=== PATIENT | male | born 1985 ===

== ENCOUNTER 2022-09-14 09:31 | Emergency (ER) | payer OTHER, SELFPAY ==
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
[2022-09-14 09:34] VITALS: BP 113/73; PULSE 78; RESP 16; TEMP 38; O2SAT 99
[2022-09-14 09:36] VITALS: BMI 24.1
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
[2022-09-14] MEDS: Fluorescein Sodium STRIP 1 STRIP EYE-BOTH (10:33)
[2022-09-14] MEDS: Acetaminophen 325 MG TABLET 975 MG PO (10:33)
[2022-09-14] MEDS: Tetracaine HCl/PF 0.5% Oph Sol 4 ML DROPS 3 DROP EYE-BOTH (10:33)
--- NOTE | 2022-09-14 10:34 | PC.NURSE ---
patient a&ox3, c/o 03/06 lt eye pain, nasal swab obtained, pt medicated per order, provider to use drops, pt awaiting ct scan, call breaux within reach, will continue to monitor
[2022-09-14 11:03] LABS: Influenza A PCR NEGATIVE (Negative); Influenza B PCR NEGATIVE (Negative); Resp Syncy Virus RNA Qual PCR NEGATIVE (Negative); SARS COV2 PCR INHOUSE POSITIVE (Negative)
--- NOTE | 2022-09-14 11:09 | PC.NURSE ---
provider performed eye exam
[2022-09-14] MEDS: Ketorolac Tromethamine 0.5% Op 5 ML DROPS 1 DROP EYE-BOTH (11:33)
[2022-09-14] MEDS: Erythromycin Base 0.5% Oph Oin 1 GM TUBE 1 CM EYE-BOTH (11:33)
[2022-09-14 11:40] VITALS: BP 106/70; PULSE 69; RESP 16; TEMP 37.1; O2SAT 97
== END 2022-09-14 11:47 | disposition home or self-care (01) ==
PROVIDERS: Physician Assistant Medical; Emergency Provider Emergency Medicine
DX: U07.1 COVID-19 (principal); M54.2 Cervicalgia; R51.9 Headache, unspecified; R50.9 Fever, unspecified
CPT/HCPCS: 0241U; 70450; 72125; 99284

== ENCOUNTER 2023-02-19 15:15 | Emergency (ER) | payer OTHER, SELFPAY ==
--- NOTE | ~2023-02-19 | XR_ITS ---
EXAMINATION: XR CERVICAL SPINE CLINICAL INFORMATION: Pain COMPARISON: CT cervical spine from 09/14/2022 TECHNIQUE: 3 views of the cervical spine were obtained. FINDINGS: No acute visible fracture or dislocation. Visualized dens is intact. Lateral masses are symmetric. Vertebral body heights and disc spaces are maintained. Prevertebral soft tissues are unremarkable. Posterior elements are intact. Paraspinal soft tissues are unremarkable. Visualized portions of the upper chest are unremarkable. XR/XR cervical spine 3V IMPRESSION: No acute visible fracture or dislocation.
[2023-02-19 15:32] VITALS: BP 104/65; PULSE 71; RESP 18; TEMP 37; O2SAT 99; BMI 25.1
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
[2023-02-19] MEDS: Ketorolac Tromethamine 30 MG/ML VIAL IM (15:41)
== END 2023-02-19 18:44 | disposition home or self-care (01) ==
PROVIDERS: Emergency Provider Emergency Medicine
DX: M54.2 Cervicalgia (principal); S16.1XXD Strain of muscle, fascia and tendon at neck level, subsequent encounter; V49.9XXD Car occupant (driver) (passenger) injured in unspecified traffic accident, subsequent encounter
CPT/HCPCS: 72040; 96372; 99283; 99284; J1885

== ENCOUNTER 2024-05-04 17:28 | Emergency (ER) | payer OTHER, SELFPAY ==
[2024-05-04 17:39] VITALS: BP 106/72; PULSE 80; RESP 20; TEMP 36.8; O2SAT 98; BMI 27.0
--- NOTE | 2024-05-04 17:39 | ED.GENADULT ---
HPI - General Adult General Chief complaint: Upper Respiratory Symptoms Stated complaint: sore throat Time Seen by Provider: 05/04/24 20:43 Source: patient Mode of arrival: ambulatory Limitations: no limitations History of Present Illness ED Provider: Lynne Herndon NP HPI narrative: Patient is a 39-year-old male who presents emergency department for evaluation of 3 days with intermittent sore throat, painful swallowing, intermittent right ear pain. Denies any active drainage from the ear, changes in hearing. Denies any known sick contacts. He has not trialed any OTC cold medications, he has only taken ibuprofen 200 mg once 2 days ago without any improvement. Denies fevers, chills, headache, dizziness, neck pain, neck stiffness, chest pain, shortness of breath, difficulty breathing, cough, sore throat, nausea, vomiting, abdominal pain, numbness or tingling of the extremities, genitourinary symptoms. Related Data Previous Rx's ?Medication ?Instructions ?Recorded acetaminophen 500 mg tablet 1,000 mg (2 x 500 mg) PO QID PRN 09/14/22 (Tylenol Extra Strength) fever or pain #14 tabs erythromycin 5 mg/gram (0.5 %) eye 0.5 inch ophthalmic (eye) QID 09/14/22 ointment corneal abrasion 7 days #3.5 grams ibuprofen 800 mg tablet 800 mg PO Q8H PRN pain #14 tabs 09/14/22 cyclobenzaprine 5 mg tablet 5 mg PO TID PRN muscle spasm #12 02/19/23 tabs lidocaine 5 % topical patch 1 patch topical DAILY #15 ea 02/19/23 benzocaine 15 mg-menthol 2.6 mg 1 ifrah mucous membrane Q2-4H PRN 05/04/24 lozenges (Cepacol Sore Throat sore throat #16 ea (benzocaine-menthol)) phenol 1.5 %-glycerin 33 % mucosal 1 spray mucous membrane Q4-6H PRN 05/04/24 spray (Chloraseptic Max Sore sore throat #118 mL Throat) Allergies Allergy/AdvReac Type Severity Reaction Status Date / Time No Known Allergies Allergy Verified 05/04/24 17:41 Review of Systems Review of Systems: Yes all other systems are reviewed and are negative PMFSH Past Medical History Attestation statement: The following information was validated with the patient. Source: old records reviewed Medical History No pertinent past medical history Social History Social History Alcohol intake: never Advance Directives: No Advance Directives Information Provided: No Do you have a plan to hurt others: No Plan Physical Exam ED Vital Signs: Vital Signs - 24 hr 05/04/24 17:39 05/04/24 20:18 Temperature 98.3 F 97.4 F Pulse Rate 80 74 Respiratory Rate 20 16 Blood Pressure 106/72 116/78 Pulse Oximetry 98 98 Oxygen Delivery Method Room Air Room Air BMI result Body Mass Index 27.0 Appearance: Alert.?Oriented to person, place and time. No acute distress.?Normal affect. Eyes: Pupils equal, round and reactive to light.? ENT: Pharynx is erythematous without tonsillar hypertrophy. No exudates. Uvula is midline. No trismus. No drooling. TM normal bilaterally. No mastoid tenderness. No otitis externa. Neck: Normal inspection.? Neck supple.??No cervical adenopathy CVS: Heart sounds normal. Normal heart rate and rhythm.? Pulses normal.?? Respiratory: No respiratory distress.? Lung sounds clear to auscultation bilaterally?? Abdomen: Soft and non-tender. Normoactive bowel sounds. No hepatosplenomegaly? Skin: Skin warm and dry.? Normal skin color.? Extremities: No lower extremity edema.? Neuro: Moves all extremities spontaneously. Sensation intact bilaterally. No focal neuro deficits. Ambulates with normal steady gait. Course Course Course Narrative: This is an RME done by SANTHOSH Ordonez: Additional HPI, ROS, PE not included below will be deferred to primary provider. 39 year old male presents w/ sore throat x 3 days worsening. Reports he feels like the nerves in his neck are hurting. No sick contacts. NO fevers, cough, nausea, vomiting, diarrhea, headache, cp, sob Medical Decision Making Medical Decision Making MDM Narrative: Patient is a 39-year-old male presents emergency department for evaluation of sore throat and intermittent right ear pain as per HPI. COVID-19/influenza/RSV testing is negative. Strep a testing is negative, appears to have acute pharyngitis I suspect this is likely viral in nature, no evidence of [employer]PA/[employer]. Tolerating oral intake without difficulty. No respiratory distress. TMs are normal bilaterally, no evidence of effusion or acute otitis media. Abdominal examination is benign. Well-appearing, nontoxic, afebrile, no tachycardia or tachypnea/hypoxia. Speaking clear full sentences, ambulatory with steady gait. Discussed conservative treatment including rest, hydration, Tylenol/ibuprofen as needed for fever and body aches, saline nasal spray, humidifier, zwhc-vaa-cvwxnja cold medication. Advised to follow-up with primary care provider as needed, discussed reasons to return back to the emergency department. All questions were answered. Patient discharged home in stable condition. Differential Diagnosis Differential Diagnoses: The differential diagnosis associated with the presentation includes ( See narrative above) Admission/Observation Consideration of admission/observation: Escalation of care including admission/observation considered ( see narrative above) Lab Data MDM Lab Attestation statement: I reviewed the patient's lab results. ( see narrative above) Labs: Lab Results 05/04/24 Range/Units 17:45 Influenza Type A (PCR) NEGATIVE (Negative) Influenza Type B (PCR) NEGATIVE (Negative) RSV RNA Qual (PCR) NEGATIVE (Negative) SARS-CoV-2 RNA (RT-PCR) NEGATIVE (Negative) S. pyogenes GrpA MANOJ Negative (Negative) External Record Review External record reviewed: Outpatient record Prescription Management I considered prescription management with: Pain Medication ( acetaminophen/ibuprofen) and Antibiotic (Likely viral etiology, antibiotics deferred) Discharge Plan Discharge Clinical Impression: Pharyngitis Patient Disposition: Home, Self-Care Instructions: Pharyngitis (ED) Additional Instructions: Be sure to rest, stay well hydrated drinking plenty of fluids, eat small frequent meals. Tylenol/ibuprofen can be used as needed for fever/pain. Zhmc-kqq-pqkuwyh cold medications may be helpful as well for symptoms. Saline nasal spray, humidifier may be helpful for nasal congestion. You may return to the emergency department with any new or worsening symptoms or concerns. Follow-up with your primary care provider as needed. Should remain out of school/ work until symptoms have resolved and have been without a fever for 24 hours without the use of Tylenol or ibuprofen. Prescriptions: New Chloraseptic Max Sore Throat 1.5-33 % spray,non-aerosol 1 spray mucous membrane Q4-6H PRN (Reason: sore throat) Qty: 118 0RF Rx Instructions: leave on area for 15 seconds then spit out Cepacol Sore Throat (pretty-men) 15-2.6 mg lozenge 1 ifrah mucous membrane Q2-4H PRN (Reason: sore throat) Qty: 16 0RF No Action ibuprofen 800 mg tablet 800 mg PO Q8H PRN (Reason: pain) Qty: 14 0RF acetaminophen [Tylenol Extra Strength] 500 mg tablet 1,000 mg PO QID PRN (Reason: fever or pain) Qty: 14 0RF erythromycin 5 mg/gram (0.5 %) ointment 0.5 inch ophthalmic (eye) QID 7 Days Qty: 3.5 0RF cyclobenzaprine 5 mg tablet 5 mg PO TID PRN (Reason: muscle spasm) Qty: 12 0RF lidocaine 5 % adhesive patch,medicated 1 patch topical DAILY Qty: 15 0RF Rx Instructions: leave on most painful area for up to 12 hrs Referrals: Physician,None [Primary Care Provider] - Print Language: Nicaraguan
[2024-05-04 18:04] LABS: IDNOW Serial# 08D9AD1C; Strep A Nucleic Acid Negative (Negative)
[2024-05-04 18:28] LABS: Influenza A PCR NEGATIVE (Negative); Influenza B PCR NEGATIVE (Negative); Resp Syncy Virus RNA Qual PCR NEGATIVE (Negative); SARS COV2 PCR INHOUSE NEGATIVE (Negative)
[2024-05-04 20:18] VITALS: BP 116/78; PULSE 74; RESP 16; TEMP 36.3; O2SAT 98
[2024-05-04 21:02] VITALS: BP 110/71; PULSE 73; RESP 16; TEMP 36.7; O2SAT 98
--- NOTE | 2024-05-04 21:18 | PC.NURSE ---
Took over care Ld Padron, Reviewed discharge instruction with pt, pt verbalized understanding no sign of distress.
[2024-05-04 21:20] VITALS: BP 110/71; PULSE 73; RESP 16; TEMP 36.7; O2SAT 98
== END 2024-05-04 21:21 | disposition home or self-care (01) ==
PROVIDERS: Physician Assistant; Emergency Provider Emergency Medicine
DX: J02.9 Acute pharyngitis, unspecified (principal); H92.01 Otalgia, right ear; Z03.818 Encounter for observation for suspected exposure to other biological agents ruled out; Z79.899 Other long term (current) drug therapy
CPT/HCPCS: 0241U; 87651; 99283; 99284

== ENCOUNTER 2024-11-29 19:06 | Emergency (ER) | payer OTHER, SELFPAY ==
--- NOTE | ~2024-11-29 | XR_ITS ---
CLINICAL HISTORY: pain --- Additional Notes or Special Instructions: constipation 1 view abdomen Comparison: None Findings: Bowel-gas pattern is within normal limits. There is a oebwe-jj-guhynoeo amount of stool in the colon. There is no evidence of bowel obstruction. There are several calcifications in the pelvis consistent with phleboliths. Impression: Bowel-gas pattern is within normal limits. This document has been electronically signed by: Adam Ortega MD on 11/29/2024 23:43:31
[2024-11-29 19:19] VITALS: BP 125/79; PULSE 71; RESP 16; TEMP 36.6; O2SAT 98; BMI 27.6
--- NOTE | 2024-11-29 19:20 | ED.ABDPAIN ---
HPI - Abdominal Pain General Chief Complaint: Abdominal Pain Stated Complaint: abd pain Time Seen by Provider: 11/29/24 22:41 Source: patient Limitations: no limitations History of Present Illness ED Provider: Shayna Nicholas PA-C HPI narrative: 39-year-old male presents with the abdominal bloating x5 days. Associated indigestion. Denies nausea, vomiting, diarrhea, fever, constipation. Denies inability to pass flatus. Related Data Previous Rx's ?Medication ?Instructions ?Recorded acetaminophen 500 mg tablet 1,000 mg (2 x 500 mg) PO QID PRN 09/14/22 (Tylenol Extra Strength) fever or pain #14 tabs erythromycin 5 mg/gram (0.5 %) eye 0.5 inch ophthalmic (eye) QID 09/14/22 ointment corneal abrasion 7 days #3.5 grams ibuprofen 800 mg tablet 800 mg PO Q8H PRN pain #14 tabs 09/14/22 cyclobenzaprine 5 mg tablet 5 mg PO TID PRN muscle spasm #12 02/19/23 tabs lidocaine 5 % topical patch 1 patch topical DAILY #15 ea 02/19/23 benzocaine 15 mg-menthol 2.6 mg 1 ifrah mucous membrane Q2-4H PRN 05/04/24 lozenges (Cepacol Sore Throat sore throat #16 ea (benzocaine-menthol)) phenol 1.5 %-glycerin 33 % mucosal 1 spray mucous membrane Q4-6H PRN 05/04/24 spray (Chloraseptic Max Sore sore throat #118 mL Throat) Allergies Allergy/AdvReac Type Severity Reaction Status Date / Time No Known Allergies Allergy Verified 11/29/24 19:21 Review of Systems Review of Systems Yes all other systems are reviewed and are negative Constitutional: Denies fatigue and Denies fever(s) Cardiovascular: Denies chest pain and Denies dyspnea Respiratory: Denies cough and Denies dyspnea Gastrointestinal: Reports bloating, Denies constipation, Reports dyspepsia, Denies diarrhea, Denies nausea and Denies vomiting Endocrine: Denies fatigue PMFSH Past Medical History Attestation statement: The following information was validated with the patient. Medical History No pertinent past medical history Social History Social History Alcohol intake: never Advance Directives: No Advance Directives Information Provided: Yes Physical Exam ED Vital Signs: Vital Signs - 24 hr 11/29/24 19:19 11/29/24 22:00 Temperature 97.9 F 98.6 F Pulse Rate 71 63 Respiratory Rate 16 13 Blood Pressure 125/79 Pulse Oximetry 98 99 Oxygen Delivery Method Room Air Room Air BMI result Body Mass Index 27.6 Const Other: Alert, well-appearing Orientation/consciousness: patient oriented x3 Resp Effort & Inspection: normal respiratory effort Cardio Other: normal peripheral perfusion GI Other: abdomen is soft, objectively distended, nontender no guarding Skin Other: warm dry no rash Neuro General: patient oriented x3, gait normal, no focal motor deficits and CN's II-XI intact bilaterally Psych Other: cooperative Course Course Course Narrative: This is a Rapid Medical Exam performed in triage by Lore Pritchett PA-C. Full HPI, ROS and PE to be performed by primary ED provider. 39 yo M w/no sig PMHX presenting to the ED c/o abdominal bloating x1 week. Reports pressure. Denies N/V, constipation, urinary sx PE: +abdominal distention, abdomen soft nontender, no rebound or guarding Plan: labs, UA Medical Decision Making Medical Decision Making MDM Narrative: 39-year-old male presents with the abdominal bloating x5 days. Associated indigestion. Denies nausea, vomiting, diarrhea, fever, constipation. Denies inability to pass flatus. no chronic issues History: Per patient I have considered the following differential diagnoses: Constipation, obstipation, fecal impaction, bowel obstruction , Perforated peptic ulcer Plan: patient is objectively distended without any active GI symptoms, he states he is not constipated, he likely is. Screening labs were already obtained and are unremarkable. Adding on a KUB. He has no obstructive symptoms at this time. Given concurrent indigestion, thought about potential perforated ulcer, however there are no peritoneal signs on exam, he has no active vomiting in particular coffee-ground emesis. I have independently reviewed the following tests: Labs: No leukocytosis, not anemic, no electrolyte abnormality noted, urine not infected KUB:Findings: Bowel-gas pattern is within normal limits. There is a zkwsa-cp-iifgfdee amount of stool in the colon. There is no evidence of bowel obstruction. There are several calcifications in the pelvis consistent with phleboliths. Impression: Bowel-gas pattern is within normal limits. Lab Data 11/29/24 19:51 11/29/24 19:51 Labs: Lab Results 11/29/24 Range/Units 19:51 WBC 6.1 (4.8-10.8) X10*3/uL RBC 5.11 (4.60-5.80) X10*6/uL Hgb 14.6 (14.0-18.0) g/dl Hct 43.8 (42.0-52.0) % MCV 85.7 (80.0-98.0) fL MCH 28.6 (27.0-33.0) pg MCHC 33.3 (31.0-36.0) g/dl RDW 13.2 (11.0-16.0) % Plt Count 221 (160-400) X10*3/uL MPV 9.1 L (9.4-12.4) fL Immature Gran % (Auto) 0.3 (0.0-0.4) % Neut % (Auto) 37.6 L (45-73) % Lymph % (Auto) 52.1 H (20-40) % [place] % (Auto) 7.6 (2-11) % Eos % (Auto) 1.6 (0-4) % Baso % (Auto) 0.8 (0-2) % Lymph # (Auto) 3.2 (1.2-4.9) X10*3/uL [place] # (Auto) 0.5 (0.1-1.2) X10*3/uL Eos # (Auto) 0.1 (0.0-0.4) X10*3/uL Baso # (Auto) 0.1 (0.0-0.2) X10*3/uL Abs Immat Gran (auto) 0.02 (0.00-0.03) X10*3/uL Absolute Neuts (auto) 2.3 (2.0-8.3) x10*3/uL Absolute Nucleated RBC 0.000 (0.0-0.012) X10*3/uL Nucleated RBC % (auto) 0.0 (0.0-0.2) /100WBC Sodium 141 (135-145) mmol/L Potassium 3.9 (3.3-5.1) mmol/L Chloride 110 H (96-108) mmol/L Carbon Dioxide 25 (22-29) mmol/L Anion Gap 10 L (12-20) BUN 10 (9-16) mg/dL Creatinine 1.28 (0.5-1.4) mg/dL Estim Creat Clear Calc 73.4 Estimated GFR > 60 Random Glucose 93 (60-115) mg/dL Calcium 9.5 (8.4-10.2) mg/dL Magnesium 2.0 (1.6-2.6) mg/dL Total Bilirubin 0.3 (0.0-1.0) mg/dL Direct Bilirubin 0.1 (0.0-0.5) mg/dL AST 21 (5-37) U/L ALT 26 (0-40) U/L Alkaline Phosphatase 75 (39-117) U/L Total Protein 7.4 (6.5-8.0) g/dL Albumin 4.3 (3.5-5.0) g/dL Lipase 41 (8-78) U/L Urine Color Yellow Urine Appearance Clear Urine pH 7.0 (5.0-9.0) Ur Specific [place] 1.025 (1.005-1.025) Urine Protein Negative (Neg-Trace) mg/dL Urine Glucose (UA) Negative (Negative) mg/dL Urine Ketones Trace (Negative) mg/dL Urine Blood Negative (Negative) Urine Nitrite Negative (Negative) Ur Leukocyte Esterase Negative (Negative) Medications Administered Discontinued Medications Generic Name Dose Route Start Last Admin Trade Name Phongq PRN Reason Stop Dose Admin Al Hydroxide/Mg Hydroxide 30 ml 11/29/24 23:03 11/29/24 23:28 Magnesium Hydrox/Alum Hydrox 30 Ml Oral.Susp PO 11/29/24 23:04 30 ml ONCE ONE Administration Discharge Plan Discharge Clinical Impression: Constipation Patient Disposition: Home, Self-Care Instructions: Constipation (ED) Additional Instructions: all of your screening labs were normal, the x-ray revealed that you are constipated. See home care instructions. Use hirq-wpb-kszcgrr Colace, this is a stool softener, twice a day. Use perd-vsr-mpartnu MiraLax, you can either drink it every hour until you begin having multiple large volume bowel movements, or you could take it more gradually, use it 3 to 4 times a day, until you begin evacuating her bowels. Follow up with your PCP as needed. Prescriptions: No Action ibuprofen 800 mg tablet 800 mg PO Q8H PRN (Reason: pain) Qty: 14 0RF acetaminophen [Tylenol Extra Strength] 500 mg tablet 1,000 mg PO QID PRN (Reason: fever or pain) Qty: 14 0RF erythromycin 5 mg/gram (0.5 %) ointment 0.5 inch ophthalmic (eye) QID 7 Days Qty: 3.5 0RF cyclobenzaprine 5 mg tablet 5 mg PO TID PRN (Reason: muscle spasm) Qty: 12 0RF lidocaine 5 % adhesive patch,medicated 1 patch topical DAILY Qty: 15 0RF Rx Instructions: leave on most painful area for up to 12 hrs Chloraseptic Max Sore Throat 1.5-33 % spray,non-aerosol 1 spray mucous membrane Q4-6H PRN (Reason: sore throat) Qty: 118 0RF Rx Instructions: leave on area for 15 seconds then spit out Cepacol Sore Throat (pretty-men) 15-2.6 mg lozenge 1 ifrah mucous membrane Q2-4H PRN (Reason: sore throat) Qty: 16 0RF Print Language: Moldovan
[2024-11-29 19:56] LABS: MANUAL DIFF FLAG NO
[2024-11-29 19:57] LABS: Basophils Absolute Auto 0.1 X10*3/uL (0.0-0.2); Basophils Percent Auto 0.8 % (0-2); Eosinophils Absolute Auto 0.1 X10*3/uL (0.0-0.4); Eosinophils Percent Auto 1.6 % (0-4); Hematocrit 43.8 % (42.0-52.0); Hemoglobin 14.6 g/dl (14.0-18.0); Imm Gran Abs Auto 0.02 X10*3/uL (0.00-0.03); Imm Gran Pct Auto 0.3 % (0.0-0.4); Lymphocytes Absolute Auto 3.2 X10*3/uL (1.2-4.9); Lymphocytes Percent Auto 52.1 % (20-40); Mean Corpuscular HGB Conc 33.3 g/dl (31.0-36.0); Mean Corpuscular Hemoglobin 28.6 pg (27.0-33.0); Mean Corpuscular Volume 85.7 fL (80.0-98.0); Mean Platelet Volume 9.1 fL (9.4-12.4); Monocytes Absolute Auto 0.5 X10*3/uL (0.1-1.2); Monocytes Percent Auto 7.6 % (2-11); Neutrophils Absolute Auto 2.3 x10*3/uL (2.0-8.3); Neutrophils Percent Auto 37.6 % (45-73); Platelet Count 221 X10*3/uL (160-400); Red Blood Count 5.11 X10*6/uL (4.60-5.80); Red Cell Distribution Width 13.2 % (11.0-16.0); White Blood Count 6.1 X10*3/uL (4.8-10.8)
[2024-11-29 19:58] LABS: Appearance Urine Clear; Color Urine Yellow; Glucose Urine UA Negative (Negative); Leukocyte Esterase Urine Negative (Negative); Nitrite Urine Negative (Negative); Specific Gravity - Urine 1.025 (1.005-1.025); Urine Blood Negative (Negative); Urine Ketones Trace mg/dL (Negative); Urine Protein Negative (Neg-Trace)
[2024-11-29 20:11] LABS: Alanine Aminotransferase 26 U/L (0-40); Albumin Level 4.3 g/dL (3.5-5.0); Alkaline Phosphatase 75 U/L (39-117); Anion Gap 10 (12-20); Aspartate Amino Transferase 21 U/L (5-37); Bilirubin Direct 0.1 mg/dL (0.0-0.5); Bilirubin Total 0.3 mg/dL (0.0-1.0); Blood Urea Nitrogen 10 mg/dL (9-16); Calcium 9.5 mg/dL (8.4-10.2); Carbon Dioxide 25 mmol/L (22-29); Chloride 110 mmol/L (96-108); Creatinine Clr Calc Pharmacy 73.4; Estimated Glomerular Filt Rate > 60; Glucose Random 93 mg/dL (60-115); Lipase 41 U/L (8-78); Potassium 3.9 mmol/L (3.3-5.1); Sodium 141 mmol/L (135-145); Total Protein 7.4 g/dL (6.5-8.0)
[2024-11-29 22:00] VITALS: PULSE 63; RESP 13; TEMP 37; O2SAT 99
[2024-11-29] MEDS: Magnesium Hydrox/Alum Hydrox 30 ML ORAL.SUSP PO (23:28)
--- NOTE | 2024-11-30 00:48 | PC.NURSE ---
reviewed discharge instructions with pt, pt verbalized understanding, no sign of distress, pt has a steady gait.
--- NOTE | 2024-11-30 00:48 | PC.NURSE ---
notified ANTHONY ware
[2024-11-30 00:49] VITALS: BP 00/00; PULSE 63; RESP 13; TEMP 37; O2SAT 99
== END 2024-11-30 00:50 | disposition home or self-care (01) ==
PROVIDERS: Physician Assistant; Emergency Provider Emergency Medicine
DX: K59.00 Constipation, unspecified (principal); K30 Functional dyspepsia; Z79.899 Other long term (current) drug therapy
CPT/HCPCS: 36415; 74018; 80048; 80076; 81003; 83690; 83735; 85025; 99283; 99284

== ENCOUNTER → 2024-11-29 22:56 | Outpatient (BNV) | payer OTHER, SELFPAY | PROVIDERS: Visit Provider Radiology Diagnostic Radiology | DX: R10.9 Unspecified abdominal pain (principal) | CPT/HCPCS: 74018 ==

== ENCOUNTER 2025-01-08 13:20 | Emergency (ER) | payer OTHER, SELFPAY ==
--- NOTE | ~2025-01-08 | XR_ITS ---
EXAMINATION: XR ABDOMEN 1 VIEW (KUB) HISTORY: constipation COMPARISON: Comparison is made with the prior examination dated 11/29/2024. FINDINGS: Three supine views of the abdomen are submitted. The bowel gas pattern is unremarkable, without evidence of mechanical obstruction. There is a large amount of stool throughout the colon. There are phleboliths in the pelvis. There are no abnormal soft tissue masses. The bones are intact. XR/XR KUB IMPRESSION: Large amount of stool throughout the colon. Electronically signed by: Yasir Hopkins MD 01/08/2025 02:04 PM EDT
[2025-01-08 13:28] VITALS: BP 113/70; PULSE 78; RESP 14; TEMP 36; O2SAT 97; BMI 24.1
--- NOTE | 2025-01-08 13:28 | ED_ITS ---
HPI - General Adult General Chief complaint: General Medical Stated complaint: constipation Time Seen by Provider: 01/08/25 14:08 Source: patient Mode of arrival: ambulatory Limitations: no limitations History of Present Illness ED Provider: SUSAN MARES PA-C HPI narrative: 39 year old male presents to the ED today for evaluation of abdominal bloating and constipation. Reports his last BM was yesterday and was normal. History of similar symptoms 1 month ago. He was diagnosed with constipation. He was treated with Maalox in the ED which helped his symptoms. He has been trialing xayp-gdx-zlsxbzn Colace and MiraLax without much effect. He is passing flatus. Denies nausea or vomiting. Denies history of abdominal surgeries. Related Data Previous Rx's ?Medication ?Instructions ?Recorded acetaminophen 500 mg tablet 1,000 mg (2 x 500 mg) PO Q ID PRN 09/14/22 (Tylenol Extra Strength) fever or pain #14 tabs erythromycin 5 mg/gram (0.5 %) eye 0.5 inch ophthalmic (eye) QID 09/14/22 ointment corneal abrasion 7 days #3.5 grams ibuprofen 800 mg tablet 800 mg PO Q8H PRN pain #14 t abs 09/14/22 cyclobenzaprine 5 mg tablet 5 mg PO TID PRN muscle spa sm #12 02/19/23 tabs lidocaine 5 % topical patch 1 patch topical DAILY #15 ea 02/19/23 benzocaine 15 mg-menthol 2.6 mg 1 ifrah mucous membrane Q2-4H PRN 05/04/24 lozenges (Cepacol Sore Throat sore throat #16 ea (benzocaine-menthol)) phenol 1.5 %-glycerin 33 % mucosal 1 spray mucous memb malika Q4-6H PRN 05/04/24 spray (Chloraseptic Max Sore sore throat #118 mL Throat) peg 3350-electrolytes 236 240 ml PO DAILY 3 days #4,00 0 mL 01/08/25 gram-22.74 gram-6.74 gram-5.86 gram solution (Golytely) Allergies Allergy/AdvReac Type Severity Reaction Status Date / Time No Known Allergies Allergy Verified 01/08/25 13:30 Review of Systems Review of Systems: Yes all other systems are reviewed and are negative PMFSH Past Medical History Attestation statement: The following information was validated with the patient. Source: old records reviewed and nursing notes reviewed Medical History No pertinent past medical history Social History Social History Alcohol intake: never Advance Directives: No Advance Directives Information Provided: Yes Do you have a plan to hurt others: No Plan Physical Exam ED Vital Signs: Vital Signs - 24 hr 01/08/25 13:28 01/08/25 14:11 Temperature 96.8 F 96.8 F Pulse Rate 78 78 Respiratory Rate 14 14 Blood Pressure 113/70 113/70 Pulse Oximetry 97 97 Oxygen Delivery Method Room Air BMI result Body Mass Index 24.1 vital signs stable General: Well appearing, in no acute distress. Skin: Warm, dry, intact. No rashes or lesions. Head: Normocephalic, atraumatic. EENT: Hearing is intact b/l. Conjunctiva clear. Sclera is anicteric. PERRLA. EOM intact. Moist mucous membranes.? Cardiac: Chest wall symmetric. RRR Lungs: Normal respiratory effort without accessory muscle use. CTA bilaterally. Abdomen: Soft, non-tender, non-distended. No rebound tenderness or guarding. Positive BS x4. Back: No midline spinous or paraspinal tenderness. No step off deformity. Ext: Upper and lower extremities atraumatic, without tenderness, deformity, swelling or erythema Neuro: AOx3. Normal speech. Ambulating with steady gait. Course Course Course Narrative: KUB showing constipation. no evidence of bowel obstruction. exam benign. Treated with Maalox in ED. Will send GoLYTELY to pharmacy. Patient has remained stable throughout ED visit today. Discussed worrisome signs and symptoms and when to return to the ED. All questions answered at this time. Patient is agreeable with disposition and stable for discharge. Medications Administered Discontinued Medications Generic Name Dose Route Start Last Admin Trade Name Freq PRN Reason Stop Dose Admin Al Hydroxide/Mg Hydroxide 30 ml 01/08/25 14:14 01/08/25 14:18 Magnesium Hydrox/Alum Hydrox 30 Ml Oral.Susp PO 01/08/25 14:15 30 ml ONCE ONE Administration Medical Decision Making Medical Decision Making MDM Narrative: 39 year old male presents to the ED today for evaluation of abdominal bloating and constipation. Vital signs stable. He is well-appearing and in no acute distress. Abdominal exam benign. Differential diagnosis includes constipation. Unlikely bowel obstruction, acute abdomen. Plan for KUB and re-evaluation. Differential Diagnosis Differential Diagnoses: The differential diagnosis associated with the presentation includes as above. Admission/Observation not indicated. Independent Interpretation I performed an independent interpretation of an: Plain X-Ray Interpretation: KUB showing constipation Radiology Impression Discussion of test interpretation with radiology: I have reviewed the radiologist's reading. Radiologist Impression: Date of Service: 01/08/25 Procedure(s): XR KUB Accession Number(s): [id number] cc: Physician,Unknown ; Susan Mares~ EXAMINATION: XR ABDOMEN 1 VIEW (KUB) HISTORY: constipation COMPARISON: Comparison is made with the prior examination dated 11/29/2024. FINDINGS: Three supine views of the abdomen are submitted. The bowel gas pattern is unremarkable, without evidence of mechanical obstruction. There is a large amount of stool throughout the colon. There are phleboliths in the pelvis. There are no abnormal soft tissue masses. The bones are intact. XR/XR KUB IMPRESSION: Large amount of stool throughout the colon. Electronically signed by: Yasir Hopkins MD 01/08/2025 02:04 PM EDT External Record Review External record reviewed: Inpatient record Prescription Management I considered prescription management with: Other (golytely) Social Determinants Patient?s care significantly limited by Social Determinants of Health including: Other Social Determinant of Health Critical Care Time Critical Care Time Critical Care Time: No Discharge Plan Discharge Clinical Impression: Constipation Patient Disposition: Home, Self-Care Instructions: Polyethylene Glycol 3350/Electrolytes (By mouth), Constipation (ED) Additional Instructions: Your imaging shows that you are constipated. See home care instructions. There is no evidence of obstruction. I am sending golytely to your pharmacy. Take this as prescribed to pass stool. Follow up with your doctor in 2 weeks. Return with new or worsening symptoms such as inability to pass a bowel movement or vomiting. In the case of an emergency call 911. Prescriptions: New peg 3350-electrolytes [Golytely] 236-22.74-6.74 -5.86 gram recon soln 240 ml PO DAILY 3 Days Qty: 4000 0RF Rx Instructions: until fecal effluent is clear No Action ibuprofen 800 mg tablet 800 mg PO Q8H PRN (Reason: pain) Qty: 14 0RF acetaminophen [Tylenol Extra Strength] 500 mg tablet 1,000 mg PO QID PRN (Reason: fever or pain) Qty: 14 0RF erythromycin 5 mg/gram (0.5 %) ointment 0.5 inch ophthalmic (eye) QID 7 Days Qty: 3.5 0RF cyclobenzaprine 5 mg tablet 5 mg PO TID PRN (Reason: muscle spasm) Qty: 12 0RF lidocaine 5 % adhesive patch,medicated 1 patch topical DAILY Qty: 15 0RF Rx Instructions: leave on most painful area for up to 12 hrs Chloraseptic Max Sore Throat 1.5-33 % spray,non-aerosol 1 spray mucous membrane Q4-6H PRN (Reason: sore throat) Qty: 118 0RF Rx Instructions: leave on area for 15 seconds then spit out Cepacol Sore Throat (pretty-men) 15-2.6 mg lozenge 1 ifrah mucous membrane Q2-4H PRN (Reason: sore throat) Qty: 16 0RF Referrals: [facility] [Provider Group, Gastroenterology] Physician,Unknown J [Primary Care Provider, Medical] Stand Alone Forms: Work/School Release Interventions: ED Discharge Assessment Last Done: 01/08/25 14:11 Discharge Date/Time: 01/08/25 14:33 Print Language: [place]se
[2025-01-08 14:11] VITALS: BP 113/70; PULSE 78; RESP 14; TEMP 36; O2SAT 97
[2025-01-08] MEDS: Magnesium Hydrox/Alum Hydrox 30 ML ORAL.SUSP PO (14:18)
== END 2025-01-08 14:33 | disposition home or self-care (01) ==
LOC: HO.ED 14:23
PROVIDERS: Emergency Provider Emergency Medicine
DX: K59.00 Constipation, unspecified (principal); R14.0 Abdominal distension (gaseous)
CPT/HCPCS: 74018; 99282; 99283

== ENCOUNTER → 2025-01-08 13:29 | Outpatient (BNV) | payer OTHER, SELFPAY | PROVIDERS: Emergency Provider Emergency Medicine; Visit Provider Radiology Diagnostic Radiology | DX: K59.00 Constipation, unspecified (principal) | CPT/HCPCS: 74018 ==

== ENCOUNTER 2025-05-08 18:22 | Emergency (ER) | payer OTHER, SELFPAY ==
--- NOTE | 2025-05-08 | ECG_ITS ---
Test Reason : cp Blood Pressure : */* mmHG Vent. Rate : 83 BPM Atrial Rate : 83 BPM P-R Int : 150 ms QRS Dur : 86 ms QT Int : 354 ms P-R-T Axes : 64 62 -20 degrees QTcB Int : 415 ms Normal sinus rhythm Minimal voltage criteria for LVH, may be normal variant ( Sokolow-Fisher ) T wave abnormality, consider inferior ischemia Abnormal ECG No previous ECGs available Referred By: Generic ED Physician Electronically Signed By: VANESSA SALDIVAR MD
--- NOTE | ~2025-05-08 | XR_ITS ---
CLINICAL HISTORY: pain 1 view chest x-ray. Comparison: None provided Findings: Heart size is normal. No consolidation or effusion. No acute fracture. The visualized upper abdomen is unremarkable. Impression: No acute cardiopulmonary process. This document has been electronically signed by: Bren Burns MD on 05/08/2025 21:03:32
--- NOTE | ~2025-05-08 | XR_ITS ---
CLINICAL HISTORY: pain 1 view abdomen Comparison: Radiograph on January 08, 2025. Findings: Nonobstructive bowel gas pattern. No pneumatosis. No abnormal calcifications. No acute fractures. IMPRESSION: Nonobstructive bowel gas pattern. This document has been electronically signed by: Bren Burns MD on 05/08/2025 21:01:00
--- NOTE | 2025-05-08 18:31 | ED_ITS ---
HPI - General Adult General Chief complaint: Chest Pain Stated complaint: CP Time Seen by Provider: 05/08/25 20:22 Source: patient Limitations: no limitations History of Present Illness ED Provider: Shayna Nicholas PA-C HPI narrative: 40-year-old male with a history of constipation presents with left-sided chest pain x1 week. Pain is nonradiating, described as a burning sensation, similar to heartburn. Denies postprandial symptoms, no epigastric discomfort or nausea vomiting. No fever. No recent cough or cold symptoms. Denies shortness of breath or diaphoresis. Denies new activity heavy lifting or trauma that could have precipitated his discomfort. Related Data Previous Rx's ?Medication ?Instructions ?Recorded acetaminophen 500 mg tablet 1,000 mg (2 x 500 mg) PO Q ID PRN 09/14/22 (Tylenol Extra Strength) fever or pain #14 tabs erythromycin 5 mg/gram (0.5 %) eye 0.5 inch ophthalmic (eye) QID 09/14/22 ointment corneal abrasion 7 days #3.5 grams ibuprofen 800 mg tablet 800 mg PO Q8H PRN pain #14 t abs 09/14/22 cyclobenzaprine 5 mg tablet 5 mg PO TID PRN muscle spa sm #12 02/19/23 tabs lidocaine 5 % topical patch 1 patch topical DAILY #15 ea 02/19/23 benzocaine 15 mg-menthol 2.6 mg 1 ifrah mucous membrane Q2-4H PRN 05/04/24 lozenges (Cepacol Sore Throat sore throat #16 ea (benzocaine-menthol)) phenol 1.5 %-glycerin 33 % mucosal 1 spray mucous memb malika Q4-6H PRN 05/04/24 spray (Chloraseptic Max Sore sore throat #118 mL Throat) peg 3350-electrolytes 236 240 ml PO DAILY 3 days #4,00 0 mL 01/08/25 gram-22.74 gram-6.74 gram-5.86 gram solution (Golytely) sucralfate 100 mg/mL oral 10 ml PO QID PRN indigestion #300 05/08/25 suspension (Carafate) mL Allergies Allergy/AdvReac Type Severity Reaction Status Date / Time No Known Allergies Allergy Verified 05/08/25 18:36 Review of Systems 2 Review of Systems: Yes all other systems are reviewed and are negative Constitutional: Constitutional: Denies fatigue and Denies fever(s) Cardiovascular: Cardiovascular: Reports chest pain and Denies dyspnea Respiratory: Respiratory: Denies dyspnea Gastrointestinal: Gastrointestinal: Denies abdominal pain, Reports dyspepsia, Denies nausea and Denies vomiting Endocrine: Endocrine: Denies fatigue [facility] Past Medical History Attestation statement: The following information was validated with the patient. Medical History No pertinent past medical history Social History Social History Alcohol intake: never Smoked in Last 30 Days: No Use of substances other than those prescribed or required for medical reasons: No Advance Directives: No Advance Directives Information Provided: No Do you have a plan to hurt others: No Plan Physical Exam ED Vital Signs: Vital Signs - 24 hr 05/08/25 18:33 05/08/25 20:54 Temperature 98.1 F 97.9 F Pulse Rate 81 78 Respiratory Rate 18 14 Blood Pressure 116/70 118/75 Pulse Oximetry 98 98 Oxygen Delivery Method Room Air Room Air BMI result Body Mass Index 28.3 Const Other: Alert well-appearing Orientation/consciousness: patient oriented x3 Resp Effort & Inspection: normal respiratory effort Cardio Other: Normal peripheral perfusion GI Other: Abdomen is soft, nontender no guarding Skin Other: Warm dry no rash Neuro General: patient oriented x3, gait normal, no focal motor deficits and CN's II- XI intact bilaterally Psych Other: Calm cooperative Course Course Course Narrative: This is a Rapid Medical Examination (RME) performed by Lele Mares PA-C in triage. Full HPI, ROS, assessment and treatment plan per primary provider in the Main ED. Hx: 40 yo M here for eval of L sided chest pain x1 week. when I move, it feels like there is a clot in my chest . not worse w/ eating. no N/V. Plan: labs ekg Medications Administered Discontinued Medications Generic Name Dose Route Start Last Admin Trade Name Freq PRN Reason Stop Dose Admin Sucralfate 1 gm 05/08/25 20:27 05/08/25 21:00 Sucralfate Oral Suspension 1 Gm/10 Ml Oral.Susp PO 05/08/25 20:28 1 gm ONCE ONE Administration Medical Decision Making Medical Decision Making [facility] Narrative: 40-year-old male with a history of constipation presents with left-sided chest pain x1 week. Pain is nonradiating, described as a burning sensation, similar to heartburn. Denies postprandial symptoms, no epigastric discomfort or nausea vomiting. No fever. No recent cough or cold symptoms. Denies shortness of breath or diaphoresis. Denies new activity heavy lifting or trauma that could have precipitated his discomfort. Problem: Constipation History: Per patient I have considered the following differential diagnoses: Atypical presentation for ACS, GERD, biliary colic, pneumonia, chest wall strain, costochondritis, PE Plan: The patient is here with a symptoms at most resemble poorly controlled acid reflux, he has been seen in the emergency department before with similar presentation, he also struggles with constipation, which is a trigger, adding on a KUB. ACS was considered, the patient states he does smoke tobacco, however he has no other risk factors for coronary artery disease, his presentation is not consistent with a ACS, with screening labs a troponin and EKG obtained, adding on a chest x-ray. It does not sound as if he has any infectious symptoms to suggest pneumonia, or a costochondritis. The pain is also not reproducible. Thought about PE, however the patient is not hypoxic he is not complaining of shortness of breath he is not tachycardic, he is PERC negative. I have independently reviewed the following tests: Labs: No leukocytosis, not anemic, no electrolyte abnormality, LFTs normal, troponin less than 2.7 EKG: Normal sinus rhythm, rate 83, T-wave abnormality inferior lead, no active ischemic changes, QTC 415 no ectopy Chest x-ray:Findings: Heart size is normal. No consolidation or effusion. No acute fracture. The visualized upper abdomen is unremarkable. Impression: No acute cardiopulmonary process. KUB:Findings: Nonobstructive bowel gas pattern. No pneumatosis. No abnormal calcifications. No acute fractures. IMPRESSION: Nonobstructive bowel gas pattern. Differential Diagnosis Differential Diagnoses: The differential diagnosis associated with the presentation includes See [facility] Admission/Observation Consideration of admission/observation: Escalation of care including admission/observation considered Not applicable Lab Data [facility] Lab Attestation statement: I reviewed the patient's lab results. 05/08/25 19:08 05/08/25 19:08 Labs: Lab Results 05/08/25 Range/Units 19:08 WBC 7.0 (4.8-10.8) X10*3/uL RBC 5.24 (4.60-5.80) X10*6/uL Hgb 15.3 (14.0-18.0) g/dl Hct 44.8 (42.0-52.0) % MCV 85.5 (80.0-98.0) fL MCH 29.2 (27.0-33.0) pg MCHC 34.2 (31.0-36.0) g/dl RDW 12.9 (11.0-16.0) % Plt Count 249 (160-400) X10*3/uL MPV 9.6 (9.4-12.4) fL Immature Gran % (Auto) 0.4 (0.0-0.4) % Neut % (Auto) 49.9 (45-73) % Lymph % (Auto) 43.3 H (20-40) % Towner % (Auto) 4.5 (2-11) % Eos % (Auto) 1.3 (0-4) % Baso % (Auto) 0.6 (0-2) % Lymph # (Auto) 3.1 (1.2-4.9) X10*3/uL Towner # (Auto) 0.3 (0.1-1.2) X10*3/uL Eos # (Auto) 0.1 (0.0-0.4) X10*3/uL Baso # (Auto) 0.0 (0.0-0.2) X10*3/uL Abs Immat Gran (auto) 0.03 (0.00-0.03) X10*3/uL Absolute Neuts (auto) 3.5 (2.0-8.3) x10*3/uL Absolute Nucleated RBC 0.000 (0.0-0.012) X10*3/uL Nucleated RBC % (auto) 0.0 (0.0-0.2) /100WBC Sodium 139 (135-145) mmol/L Potassium 3.8 (3.3-5.1) mmol/L Chloride 108 (96-108) mmol/L Carbon Dioxide 21 L (22-29) mmol/L Anion Gap 14 (12-20) BUN 13 (9-16) mg/dL Creatinine 1.24 (0.5-1.4) mg/dL Estim Creat Clear Calc 75.9 Estimated GFR > 60 Random Glucose 148 H (60-115) mg/dL Calcium 9.3 (8.4-10.2) mg/dL Magnesium 1.8 (1.6-2.6) mg/dL Total Bilirubin 0.2 (0.0-1.0) mg/dL AST 43 H (5-37) U/L ALT 73 H (0-40) U/L Alkaline Phosphatase 80 (39-117) U/L Troponin I High Sens < 2.7 (<3.5-35.0) ng/L Total Protein 7.8 (6.5-8.0) g/dL Albumin 4.4 (3.5-5.0) g/dL Lipase 40 (8-78) U/L Independent Interpretation I performed an independent interpretation of an: EKG Radiology Impression Discussion of test interpretation with radiology: I have reviewed the radiologist's reading. Discharge Plan Discharge Clinical Impression: Atypical chest pain, Indigestion, Constipation Patient Disposition: Home, Self-Care Instructions: Constipation (ED), Indigestion (ED), Noncardiac Chest Pain (ED) Additional Instructions: Your discomfort is not associated with cardiac pain. I do believe it is from poorly controlled indigestion, likely triggered by your ongoing constipation. With your screening labs, a cardiac enzyme was obtained it was negative. The chest x-ray was clear there were not any concerning changes on the EKG today. The abdominal film reveals you still have some degree of stool burden. In regard to the constipation, use [id number] Colace this is a stool softener, twice a day. Use [id number] MiraLax, 2 to 3 times a day, until your bowel habits self regulate. You need to establish primary care. In regard to the indigestion, some common food triggers are spicy food, acidic food, fatty greasy food, carbonation, alcohol or caffeine. Do not eat 3 hours before bed. Eating smaller more frequent meals throughout the day can help deter symptoms. Use the Carafate as needed for burning indigestion type symptoms. Prescriptions: New sucralfate [Carafate] 100 mg/mL suspension 10 ml PO QID PRN (Reason: indigestion) Qty: 300 0RF Rx Instructions: swish in mouth and swallow; use after food/drink No Action ibuprofen 800 mg tablet 800 mg PO Q8H PRN (Reason: pain) Qty: 14 0RF acetaminophen [Tylenol Extra Strength] 500 mg tablet 1,000 mg PO QID PRN (Reason: fever or pain) Qty: 14 0RF erythromycin 5 mg/gram (0.5 %) ointment 0.5 inch ophthalmic (eye) QID 7 Days Qty: 3.5 0RF cyclobenzaprine 5 mg tablet 5 mg PO TID PRN (Reason: muscle spasm) Qty: 12 0RF lidocaine 5 % adhesive patch,medicated 1 patch topical DAILY Qty: 15 0RF Rx Instructions: leave on most painful area for up to 12 hrs Chloraseptic Max Sore Throat 1.5-33 % spray,non-aerosol 1 spray mucous membrane Q4-6H PRN (Reason: sore throat) Qty: 118 0RF Rx Instructions: leave on area for 15 seconds then spit out Cepacol Sore Throat (pretty-men) 15-2.6 mg lozenge 1 ifrah mucous membrane Q2-4H PRN (Reason: sore throat) Qty: 16 0RF peg 3350-electrolytes [Golytely] 236-22.74-6.74 -5.86 gram recon soln 240 ml PO DAILY 3 Days Qty: 4000 0RF Rx Instructions: until fecal effluent is clear Print Language: Vincentian
[2025-05-08 18:33] VITALS: BP 116/70; PULSE 81; RESP 18; TEMP 36.7; O2SAT 98; BMI 28.3
[2025-05-08 19:13] LABS: MANUAL DIFF FLAG NO
[2025-05-08 19:15] LABS: Hematocrit 44.8 % (42.0-52.0); Hemoglobin 15.3 g/dl (14.0-18.0); Imm Gran Abs Auto 0.03 X10*3/uL (0.00-0.03); Imm Gran Pct Auto 0.4 % (0.0-0.4); Lymphocytes Absolute Auto 3.1 X10*3/uL (1.2-4.9); Mean Corpuscular HGB Conc 34.2 g/dl (31.0-36.0); Mean Corpuscular Hemoglobin 29.2 pg (27.0-33.0); Mean Corpuscular Volume 85.5 fL (80.0-98.0); NRBC Abs Auto 0.000 X10*3/uL (0.0-0.012); NRBC Pct Auto 0.0 /100WBC (0.0-0.2); Platelet Count 249 X10*3/uL (160-400); Red Blood Count 5.24 X10*6/uL (4.60-5.80); White Blood Count 7.0 X10*3/uL (4.8-10.8)
[2025-05-08 19:29] LABS: Alanine Aminotransferase 73 U/L (0-40); Albumin Level 4.4 g/dL (3.5-5.0); Alkaline Phosphatase 80 U/L (39-117); Anion Gap 14 (12-20); Aspartate Amino Transferase 43 U/L (5-37); Blood Urea Nitrogen 13 mg/dL (9-16); Calcium 9.3 mg/dL (8.4-10.2); Carbon Dioxide 21 mmol/L (22-29); Chloride 108 mmol/L (96-108); Creatinine Clr Calc Pharmacy 75.9; Estimated Glomerular Filt Rate > 60; Lipase 40 U/L (8-78); Magnesium 1.8 mg/dL (1.6-2.6); Potassium 3.8 mmol/L (3.3-5.1); Sodium 139 mmol/L (135-145); Total Protein 7.8 g/dL (6.5-8.0)
[2025-05-08 19:36] LABS: Troponin-I High Sensitivity < 2.7 ng/L (<3.5-35.0)
[2025-05-08 20:54] VITALS: BP 118/75; PULSE 78; RESP 14; TEMP 36.6; O2SAT 98
[2025-05-08] MEDS: Sucralfate Oral Suspension 1 GM/10 ML ORAL.SUSP PO (21:00)
--- NOTE | 2025-05-08 21:04 | PC.NURSE ---
CLINICAL TECHNICIAN at pt bedside at this time
[2025-05-08 22:01] VITALS: BP 118/75; PULSE 74; RESP 17; TEMP 36.6; O2SAT 98
== END 2025-05-08 22:10 | disposition home or self-care (01) ==
PROVIDERS: Physician Assistant Medical; Emergency Provider Emergency Medicine
DX: R07.89 Other chest pain (principal); K30 Functional dyspepsia; K59.00 Constipation, unspecified
CPT/HCPCS: 36415; 71045; 74018; 80053; 83690; 83735; 84484; 85025; 93005; 99283; 99285

== ENCOUNTER → 2025-05-08 18:25 | Outpatient (BNV) | payer OTHER, SELFPAY | PROVIDERS: Emergency Provider Emergency Medicine; Visit Provider Internal Medicine Cardiovascular Disease | DX: R94.31 Abnormal electrocardiogram [ECG] [EKG] (principal); R07.9 Chest pain, unspecified | CPT/HCPCS: 93010 ==

== ENCOUNTER → 2025-05-08 20:27 | Outpatient (BNV) | payer OTHER, SELFPAY | PROVIDERS: Emergency Provider Emergency Medicine; Visit Provider Student in an Organized Health Care Education/Training Program | DX: R07.9 Chest pain, unspecified (principal); R10.9 Unspecified abdominal pain | CPT/HCPCS: 71045; 74018 ==